=== PATIENT | female | born 1975 | race Caucasian/White ===

== ENCOUNTER 2019-05-02 08:59 | Outpatient (CLI) | payer OTHER ==
--- NOTE | 2019-05-02 13:15 | Mammography Report ---
Reason: SCREENING Procedure Date: 05/02/2019 Accession Number: [id number] / [id number] Procedure: SAMUEL - Screening Mammo Dig Bilat CPT Code: FULL RESULT: EXAM: Screening Mammo Dig Bilat DATE: 05/02/2019 9:15 AM CLINICAL HISTORY: Routine screening. History of benign appearing left breast nodule 9:30 position 2.5 cm from the nipple measuring 6 x 6 x 8 mm on ultrasound of 03/29/2018 and 5 x 5 x 5 mm on ultrasound of 10/10/2018. Report describes a hypoechoic, homogeneous, well-circumscribed nodule with hyperechoic back wall and posterior acoustic shadowing. 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 TECHNIQUE: (B) - Bilateral CC and MLO views were obtained. COMPARISON: Mammogram 03/29/2018, breast ultrasound 03/29/2018 and 10/10/2018 PARENCHYMAL PATTERN: (A) - The breasts demonstrate scattered fibroglandular densities bilaterally. FINDINGS: No significant interval change. The round well-circumscribed retroareolar left breast nodule is unchanged. There are no new suspicious masses, calcifications, or areas of distortion. IMPRESSION: Benign findings. BI-RADS category 2. RECOMMENDATION: (ANNUAL) - Recommend routine annual screening mammography. COMMENT: Prior recommendation on the ultrasound report of 10/10/2018 from the [facility] [employer] was for left breast ultrasound in April 2019 and April 2020. This can be scheduled on a routine outpatient basis. BI-RADS CATEGORY: (2) - Benign Findings. STANDARD QUALIFYING STATEMENTS: 1. This examination was not reviewed with the aid of Computer-Aided Detection (CAD). 2. A negative or benign imaging report should not preclude biopsy if clinically suspicious findings are present. 3. Dense breasts may obscure an underlying neoplasm. 4. This examination was reviewed without the aid of 3D breast imaging (tomosynthesis).
== END 2019-05-02 09:00 | disposition home or self-care (01) ==
LOC: DI 08:59
DX: Z12.31 Encounter for screening mammogram for malignant neoplasm of breast (principal)
CPT/HCPCS: 77067

== ENCOUNTER 2019-05-18 14:01 | Emergency (ER) | payer OTHER ==
[2019-05-18 14:33] LABS: BASOPHILS % (AUTO) 0.4 %; HGB - HEMOGLOBIN 14.3 g/dL (12.0-16.0); LYMPHOCYTES # (AUTO) 0.2 10^3/uL (1.5-3.5); LYMPHOCYTES % (AUTO) 2.7 %; MEAN CORPUSCULAR HEMOGLOBIN 28.1 pg (27.0-31.0); MEAN CORPUSCULAR HGB CONC 32.6 g/dL (32.0-36.0); MEAN CORPUSCULAR VOLUME 86.4 fL (81.0-99.0); MEAN PLATELET VOLUME 10.4 fL (7.9-10.8); MONOCYTES # (AUTO) 0.1 10^3/uL (0.0-1.0); NEUTROPHILS # (AUTO) 6.7 10^3/uL (1.5-6.6); NEUTROPHILS % (AUTO) 94.5 %; PLT - PLATELET COUNT 292 10^3/uL (130-450); RED BLOOD COUNT 5.08 10^6/uL (4.20-5.40); RED CELL DISTRIBUTION WIDTH 13.4 % (12.0-15.0); WHITE BLOOD COUNT 7.1 x10^3/uL (4.8-10.8)
[2019-05-18 14:46] LABS: ALBUMIN 3.4 g/dL (3.2-5.5); ALBUMIN/GLOBULIN RATIO 0.9 (1.0-2.2); BILIRUBIN,TOTAL 0.8 mg/dL (0.2-1.0); CALCIUM 8.5 mg/dL (8.5-10.3); CREATININE 0.7 mg/dL (0.4-1.0); TOTAL PROTEIN 7.2 g/dL (6.7-8.2)
--- NOTE | 2019-05-18 15:10 | ED Physician Documentation ---
PD HPI ABD PAIN - Stated complaint Stated Complaint: ABD PX/VOMITING - Chief complaint Chief Complaint: Abd Pain - History obtained from History obtained from: Patient - History of Present Illness Timing - onset: Today Timing - duration: Hours (10) Timing - details: Abrupt onset Pain level max: 7 Pain level now: 5 Quality: Aching, Other (Burning) Location: RUQ, Epigastric, LUQ Radiation: Chest Associated symptoms: Nausea, Vomiting, Diarrhea, Chest pain, Dizzy, Near syncope / syncope, Loss of appetite. No: Fever, Hematemesis, Constipation, Melena, Hematochezia, Dysuria Recently seen: Not recently seen - Additional information Additional information: Is a 44-year-old woman who presents with her and daughter complains that she is having "acid problems". She started vomiting this morning between 5 and 6 AM and has had 4-5 episodes since then the last one being around noon. It turned to bile, yellowish but no blood and she has had diarrhea that looked the same. She describes a burning aching sensation across her upper abdomen that radiates up into the lower chest and she felt like she might pass out. She is tried taking Tylenol, Mylanta, Gaviscon, Zantac and eating toast none of which has helped alleviate her symptoms. She rates the pain out of 4-5 out of 10 but it was up to 6-7 out of 10 it was hurting into her back. She felt short of breath when she had the pain and broke out in cold chills and sweats when vomiting she felt very clammy. She denies any dysuria. Denies stating her last menstrual period was 10 days ago. She has had no abdominal surgeries and denies use of tobacco or alcohol. Review of Systems Constitutional: reports: Chills, Sweats. denies: Fever Throat: denies: Sore throat Cardiac: reports: Chest pain / pressure Respiratory: denies: Cough GI: reports: Abdominal Pain, Nausea, Vomiting, Diarrhea. denies: Constipation, Hematemesis : denies: Dysuria, Now EGA Skin: denies: Rash Musculoskeletal: reports: Back pain Neurologic: reports: Near syncope. denies: Syncope PD PAST MEDICAL HISTORY - Present Medications Home Medications: Ambulatory Orders Medication Instructions Recorded Confirmed No Known Home Medications 05/18/19 05/18/19 - Allergies Allergies/Adverse Reactions: Allergies Allergy/AdvReac Type Severity Reaction Status Date / Time No Known Drug Allergies Allergy Verified 05/18/19 14:11 PD ED PE NORMAL - Vitals Vital signs reviewed: Yes - General General: Alert and oriented X 3, No acute distress, Well developed/nourished - HEENT HEENT: Atraumatic, PERRL, Moist mucous membranes, Other (No scleral icterus) - Cardiac Cardiac: RRR, No murmur, Strong equal pulses - Respiratory Respiratory: No respiratory distress, Clear bilaterally - Abdomen Abdomen: Normal bowel sounds, Soft, No organomegaly, Other (Diffusely tender no guarding no rebound) - Back Back: No CVA TTP - Derm Derm: Normal color, Warm and dry, No rash - Extremities Extremities: No edema - Neuro Neuro: Alert and oriented X 3, materials director 2-12 intact, No motor deficit, No sensory deficit, Normal speech - Psych Psych: Normal mood, Normal affect Results - Vitals Vitals: Vital Signs - 24 hr 05/18/19 05/18/19 05/18/19 14:11 15:11 16:36 Temperature 36.4 C L Heart Rate 80 78 71 Respiratory 14 16 16 Rate Blood Pressure 117/67 113/67 122/68 O2 Saturation 99 100 100 Oxygen O2 Source Room air - Labs Labs: Laboratory Tests 05/18/19 05/18/19 05/18/19 14:25 14:25 15:00 WBC 7.1 RBC 5.08 Hgb 14.3 Hct 43.9 MCV 86.4 MCH 28.1 MCHC 32.6 RDW 13.4 Plt Count 292 MPV 10.4 Neut # (Auto) 6.7 H Lymph # (Auto) 0.2 L [place] # (Auto) 0.1 Eos # (Auto) 0.0 Baso # (Auto) 0.0 Absolute Nucleated RBC 0.00 Nucleated RBC % 0.0 Sodium 138 Potassium 3.8 Chloride 103 Carbon Dioxide 23 Anion Gap 12.0 BUN 15 Creatinine 0.7 Estimated GFR (MDRD) 92 Glucose 131 H Calcium 8.5 Total Bilirubin 0.8 AST 19 ALT 22 Alkaline Phosphatase 48 Total Protein 7.2 Albumin 3.4 Globulin 3.8 Albumin/Globulin Ratio 0.9 L Lipase 25 Urine Color YELLOW Urine Clarity CLEAR Urine pH 6.0 Ur Specific [place] 1.020 Urine Protein NEGATIVE Urine Glucose (UA) NEGATIVE Urine Ketones TRACE Urine Occult Blood NEGATIVE Urine Nitrite NEGATIVE Urine Bilirubin NEGATIVE Urine Urobilinogen 0.2 (NORMAL) Ur Leukocyte Esterase NEGATIVE Ur Microscopic Review NOT INDICATED Urine Culture Comments NOT INDICATED Urine HCG, Qual 05/18/19 05/18/19 15:00 15:00 WBC RBC Hgb Hct MCV MCH MCHC RDW Plt Count MPV Neut # (Auto) Lymph # (Auto) [place] # (Auto) Eos # (Auto) Baso # (Auto) Absolute Nucleated RBC Nucleated RBC % Sodium Potassium Chloride Carbon Dioxide Anion Gap BUN Creatinine Estimated GFR (MDRD) Glucose Calcium Total Bilirubin AST ALT Alkaline Phosphatase Total Protein Albumin Globulin Albumin/Globulin Ratio Lipase Urine Color Cancelled Urine Clarity Cancelled Urine pH Cancelled Ur Specific [place] 1.020 Cancelled Urine Protein Cancelled Urine Glucose (UA) Cancelled Urine Ketones Cancelled Urine Occult Blood Cancelled Urine Nitrite Cancelled Urine Bilirubin Cancelled Urine Urobilinogen Cancelled Ur Leukocyte Esterase Cancelled Ur Microscopic Review Cancelled Urine Culture Comments Cancelled Urine HCG, Qual NEGATIVE PD MEDICAL DECISION MAKING - ED course Complexity details: reviewed results, re-evaluated patient, d/w patient ED course: The patient's IV did infiltrate when the Toradol and Pepcid was pushed through it. She was not really having any pain. We redosed the Pepcid. On reevaluation we discussed that her labs are normal. She said that she was feeling much better just a little bit achy. Palpation of her abdomen revealed it to be nontender. We discussed her labs and my suspicion that this was some gastroneuritis. She was offered Zofran at home which she declined stating she has some already available at home. I recommended Pepcid if she continues to have any indigestion or burning in her stomach. If she has another episode like this or pain after eating may be consider gallbladder ultrasound. Follow-up with her primary care provider. Departure - Departure Disposition: 01 Home, Self Care Clinical Impression: Vomiting Qualifiers: Vomiting type: unspecified Vomiting Intractability: non-intractable Nausea presence: with nausea Qualified Code(s): R11.2 - Nausea with vomiting, unspecified Abdominal pain Qualifiers: Abdominal location: epigastric Qualified Code(s): R10.13 - Epigastric pain Diarrhea Qualifiers: Diarrhea type: unspecified type Qualified Code(s): R19.7 - Diarrhea, unspecified Condition: Good Instructions: ED Gastroenteritis Vs Food Poison Follow-Up: Faith Espino ARNP [Primary Care Provider] - Comments: Advance her diet slowly starting with some chicken broth or crackers. Push the fluids. Follow-up with your primary care provider for reevaluation if he continued to have abdominal pain. Return if your symptoms worsen.
[2019-05-18 15:11] LABS: BILIRUBIN,URINE NEGATIVE (NEGATIVE); GLUCOSE, URINE (UA) NEGATIVE (NEGATIVE); KETONES,URINE (UA) TRACE mg/dL (NEGATIVE); LEUKOCYTE ESTERASE, URINE NEGATIVE (NEGATIVE); NITRITE,URINE NEGATIVE (NEGATIVE); OCCULT BLOOD,URINE NEGATIVE (NEGATIVE); PROTEIN,URINE NEGATIVE (NEGATIVE); UROBILINOGEN,URINE 0.2 (NORMAL) E.U./dL (NORMAL)
[2019-05-18 15:14] LABS: CLARITY,URINE CLEAR (CLEAR)
[2019-05-18 15:15] LABS: HCG UR QUAL NEGATIVE
[2019-05-18] MEDS ORDERED: KETOROLAC 30 MG/ML VIAL IVP STA (15:42)
[2019-05-18] MEDS ORDERED: SODIUM CHLORIDE 0.9% 1,000 ML IV ONE (15:42)
[2019-05-18] MEDS ORDERED: FAMOTIDINE 20 MG/2 ML VIAL IVP STA ×2 (15:42→16:27)
[2019-05-18 17:14] VITALS: BP 124/68
== END 2019-05-18 17:14 | disposition home or self-care (01) ==
LOC: ED 14:01
DX: R11.2 Nausea with vomiting, unspecified (principal); R19.7 Diarrhea, unspecified
CPT/HCPCS: 36415; 80053; 81001; 81003; 81025; 83690; 85025; 87086; 96374; 96375; 96376; 99284

== ENCOUNTER 2021-08-01 12:23 | Outpatient (CLI) | payer OTHER ==
--- NOTE | 2021-08-02 08:52 | Mammography Report ---
BILATERAL DIGITAL SCREENING MAMMOGRAM 3D/2D: 08/01/2021 CLINICAL: Routine screening. Comparison is made to exam dated: 05/02/2019 mammogram - [facility]. The tissue o f both breasts is predominantly fatty. No significant masses, calcifications, or other findings are seen in either breast. There has been no significant interval change. IMPRESSION: NEGATIVE There is no mammographic evidence of malignancy. A 1 year screening mammogram is recommended. This exam was interpreted at Station ID: [id number]. NOTE: For mammograms, a report in lay terms will be sent to the patient. Approximately 15% of breast malignancies will not be visualized mammographically. In the management of a palpable breast mass, a negative mammogram must not discourage biopsy of a clinically suspicious lesion. Electronically Signed By: Jason gary/pelon:08/01/2021 14:08:49 ACR BI-RADS Category 1: Negative 3341F PARENCHYMAL PATTERN: (F) - The breast(s) demonstrate(s) diffuse fatty replacement. BI-RADS CATEGORY: (1) - 1 RECOMMENDATION: (ANNUAL) - Recommend routine annual screening mammography. [id number] 1 year screening LATERALITY: (B)
== END 2021-08-01 12:24 | disposition home or self-care (01) ==
LOC: DI.N 12:23
PROVIDERS: ATTEND Physician Assistant
DX: Z12.31 Encounter for screening mammogram for malignant neoplasm of breast (principal)